=== PATIENT | female | born 1950 | race Caucasian/White ===

== ENCOUNTER 2017-06-01 08:13 | Day surgery (SDC) | payer OTHER ==
[~2017-06-01 08:13] MED LIST: FENTANYL INJ 100 mcg ONE; VERSED ONE
[2017-06-01] MEDS ORDERED: NS 500 ML IV 500 ML IV ONE (08:53)
[2017-06-01] MEDS ORDERED: TETRACAINE 0.5% OPHTH 1 DOSE AFFEYE ONE ×3 (09:00→11:45)
[2017-06-01] MEDS ORDERED: VIGAMOX 0.5% OPHTH 1 DOSE AFFEYE ONE ×5 (09:05→12:14)
[2017-06-01] MEDS ORDERED: PROLENSA OPHTH 1 DOSE AFFEYE ONE (09:16)
[2017-06-01] MEDS ORDERED: ALPHAGAN-P OPHTH 1 DOSE AFFEYE ONE (09:17)
[2017-06-01] MEDS ORDERED: CYCLOGYL 1% OPHTH 1 DOSE OP ONE ×4 (09:18→11:42)
[2017-06-01] MEDS ORDERED: AK-DILATE 2.5% OPHTH 1 DOSE OP ONE ×4 (09:18→11:42)
[2017-06-01] MEDS ORDERED: MYDRIACIL OPHTH 1 DOSE AFFEYE ONE ×4 (09:18→11:42)
[2017-06-01] MEDS ORDERED: FENTANYL INJ 100 mcg IVP ONE (11:18)
[2017-06-01] MEDS ORDERED: VERSED IVP ONE (11:34)
[2017-06-01] MEDS ORDERED: ALCAINE or OPHTHETIC 1 DOSE AFFEYE ONE (11:38)
[2017-06-01] MEDS ORDERED: AK-DILATE 10% OPHTH 1 DOSE AFFEYE ONE (11:42)
[2017-06-01] MEDS ORDERED: BETADINE OPHTH SOLN 5% EACHEYE ONE (11:47)
[2017-06-01] MEDS ORDERED: ADRENALINE CHL INJ IJ ONE ×2 (11:54→12:02)
[2017-06-01] MEDS ORDERED: XYLOCAINE-MPF 1% IJ ONE ×2 (11:54→12:02)
[2017-06-01] MEDS ORDERED: DUOVISC IO ONE ×2 (11:54→12:02)
[2017-06-01] MEDS ORDERED: BSS OPHTH (PLAIN) 500 ML with VANCOMYCIN HCL 500 MG VIAL 25 MG, ADRENALINE CHL INJ 1 MG IR ONE ×6 (11:56)
[2017-06-01 13:09] VITALS: BP 140/79
== END 2017-06-01 12:40 | disposition home or self-care (01) ==
LOC: SURG1 08:13
PROVIDERS: ATTEND Ophthalmology
PROC: 08DK3ZZ Extraction of Left Lens, Percutaneous Approach (ICD-10-PCS; principal; 2017-06-01 12:00)
PROC: 08RK3JZ Replacement of Left Lens with Synthetic Substitute, Percutaneous Approach (ICD-10-PCS; principal; 2017-06-01 12:00)
DX: H25.12 Age-related nuclear cataract, left eye (principal); H25.012 Cortical age-related cataract, left eye; H52.222 Regular astigmatism, left eye
CPT/HCPCS: A4217; J0170; J2250; J3010; J3370